=== PATIENT | female | born 1935 | race African-American/Black ===

== ENCOUNTER 2018-12-19 06:47 | Inpatient (IN) ==
[2018-12-19] MEDS ORDERED: NOREPINEPHRINE 4 MG/4 ML VIAL IV ONE (07:17)
[2018-12-19] MEDS ORDERED: ETOMIDATE 20 MG/10 ML VIAL IV ONE ×2 (07:20→07:22)
[2018-12-19] MEDS ORDERED: ROCURONIUM 100 MG/10 ML VIAL IV ONE ×2 (07:21→07:22)
[2018-12-19] MEDS ORDERED: SODIUM CHLORIDE 0.9% 1,000 ML IV STA ×3 (07:21→09:50)
[2018-12-19] MEDS ORDERED: MIDAZOLAM 2 MG/2 ML VIAL IV STA (07:22)
[2018-12-19] MEDS ORDERED: MIDAZOLAM 100 MG in SODIUM CHLORIDE 0.9% 80 ML IV PRN (07:22)
[2018-12-19] MEDS ORDERED: PIPERACILLIN/TAZOBACTAM 3,375 MG in SODIUM CHLORIDE 0.9% 100 ML IV STA (07:27)
[2018-12-19 07:40] LABS: PT Patient Result 10.6 SECS; Partial Thromboplastin Time 32.2 SECS (0-40)
[2018-12-19 07:43] LABS: Neutrophils % 82.6 % (38.7-73.9)
[2018-12-19 07:46] LABS: Apearance,Urine CLOUDY (Clear); Bacteria,Urine Many /HPF (Few); Bilirubin,Urine Negative (Negative); Blood, Urine Small mg/dL (Negative); Glucose,Urine (UA) Negative (Negative); Ketones,Urine Negative (Negative); Mucus,Urine Occasional /LPF (Occasional); Nitrite,Urine Negative (Negative); Protein,Urine 100 MG/DL; RBC,Urine 14 /HPF (0-4); Squamous Epithelial Cell,Urine Occasional /HPF (0-10); Urine Color Yellow (Yellow); Urine Specific Gravity 1.015 (1.001-1.035); Urine Urobilinogen < 2.0 EU/DL (0.2-1.0); WBC,Urine 1022 /HPF (0-6)
[2018-12-19 07:51] LABS: Alanine Aminotransferase 33 U/L (13-56); Albumin 2.3 G/DL (3.4-5.0); Alkaline Phosphatase 184 U/L (45-117); Aspartate Amino Transferase 23 U/L (0-37); Bilirubin,Total < 0.39 MG/DL (0.2-1.0); Blood Urea Nitrogen 110 MG/DL (7-18); Glucose 112 MG/DL (74-106); Osmolality,Calculated 334.9 MOS/KG (273-304); Total Protein 6.3 G/DL (6.4-8.3)
[2018-12-19 07:53] LABS: ABG Base Excess -14.9 MMOL/L (-2.5-2.5); ABG HCO3 13.2 MMOL/L (20-26); ABG Oxygen Saturation 99.7 % (95-100); ABG PCO2 34.7 MM HG (35-48); ABG TCO2 11.8 MMOL/L (23-27)
[2018-12-19 07:55] LABS: ABG PH 7.178 (7.35-7.45)
[2018-12-19] MEDS ORDERED: INSULIN REGULAR 100 UNIT/ML IV STA (07:57)
[2018-12-19] MEDS ORDERED: DEXTROSE 50% 25 GM/50 ML VIAL IV STA (07:57)
[2018-12-19] MEDS ORDERED: CALCIUM CHLORIDE 1,000 MG/10 ML SYRINGE IV STA (07:57)
[2018-12-19] MEDS ORDERED: SODIUM BICARBONATE 50 MEQ/50 ML VIAL IV STA (07:57)
[2018-12-19] MEDS ORDERED: SODIUM BICARBONATE 50 MEQ/50 ML SYRINGE IV ONE ×3 (08:03→13:24)
[2018-12-19] MEDS ORDERED: DEXTROSE 50% 25 GM/50 ML SYRINGE IV ONE ×2 (08:03→13:15)
[2018-12-19 08:05] LABS: Barbiturates Screen,Urine Negative (Negative); Benzodiazepines Screen,Urine Negative (Negative); Cannabinoid Screen,Urine Negative (Negative); Opiate Screen,Urine Positive (Negative); Phencyclidine Screen,Urine Negative (Negative)
[2018-12-19 08:09] LABS: Basophils % 0.4 % (0.0-0.8); Eosinophils # 0.1 10*3/uL (0.0-0.87); Eosinophils % 0.9 % (0.00-10.9); Hematocrit 41.3 VOL% (35.7-47.0); Immature Granulocytes % 0.7 %; Immature Granulocytes Absolute 0.04 #; Lymphocytes # 0.5 10*3/uL (1.4-4.0); Mean Corpuscular HGB Conc 28.8 GM/DL (32-36); Mean Platelet Volume 12.6 FL (9.6-12.0); Monocytes % 6.4 % (1.7-12.7); NRBC # 0.15 10*3/uL; Red Blood Count 4.49 MC/CUMM (3.8-5.5); Red Cell Distribution Width 20.4 % (9.3-17.3); White Blood Count 5.5 T/CUMM (4-12)
[2018-12-19 08:11] LABS: Hemoglobin 11.9 GM/DL (12.0-16.0); Platelet Count 68 T/CUMM (130-400)
[2018-12-19 08:16] LABS: Band Neutrophils 3 % (0-10); Hypochromasia 1+; Lymphocytes 10 % (20-55); Nucleated Red Blood Cells 3 (0-5); Ovalocytes Slight; Platelet Estimate Decreased; Segmented Neutrophils 78 % (50-85); Total Cells Counted 100
[2018-12-19] MEDS: NOREPINEPHRINE 8 MG in SODIUM CHLORIDE 0.9% 242 ML IV PRN (08:16)
[2018-12-19] MEDS ORDERED: SODIUM POLYSTYRENE SULFATE 15 GM/60 ML BOTTLE PER TUBE STA (08:53)
[2018-12-19 10:30] LABS: ABG Base Excess -14.4 MMOL/L (-2.5-2.5); ABG HCO3 13.5 MMOL/L (20-26); ABG Oxygen Saturation 99.7 % (95-100); ABG PCO2 31.1 MM HG (35-48); ABG PH 7.214 (7.35-7.45); ABG TCO2 11.5 MMOL/L (23-27)
[2018-12-19] MEDS ORDERED: LACTULOSE 20 GM/30 ML UDCUP PO PRN (10:37)
[2018-12-19] MEDS ORDERED: ALBUTEROL 2.5 MG/3 ML NEB RESP TX PRN (10:37)
[2018-12-19] MEDS ORDERED: ONDANSETRON 4 MG/2 ML VIAL IV PRN (10:37)
[2018-12-19] MEDS ORDERED: GLUCAGON 1 MG VIAL IM PRN (10:47)
[2018-12-19] MEDS ORDERED: DEXTROSE 50% 25 GM/50 ML SYRINGE IV PRN (10:47)
[2018-12-19] MEDS ORDERED: SODIUM CHLORIDE 0.9% 1,000 ML IV SCH (11:00)
[2018-12-19] MEDS ORDERED: DEXTROSE 5% NACL 0.45% 1,000 ML IV SCH (11:00)
[2018-12-19] MEDS: SODIUM BICARB INJ 100 MEQ in DEXTROSE 5% 1,000 ML IV SCH ×2 (11:45→21:35)
[2018-12-19 12:49] LABS: Calcium 8.4 MG/DL (8.5-10.1); Osmolality,Calculated 330.6 MOS/KG (273-304)
[2018-12-19] MEDS: PANTOPRAZOLE 40 MG VIAL IV SCH (12:50)
[2018-12-19] MEDS ORDERED: EPINEPHrine 1 MG/ML VIAL IV ONE (13:11)
[2018-12-19] MEDS ORDERED: CALCIUM CHLORIDE 1,000 MG/10 ML SYRINGE IV ONE ×2 (13:12→13:27)
[2018-12-19] MEDS ORDERED: SODIUM POLYSTYRENE SULFATE 15 GM/60 ML BOTTLE PO ONE (14:00)
[2018-12-19 14:08] LABS: Calcium 13.2 MG/DL (8.5-10.1); Osmolality,Calculated 341.3 MOS/KG (273-304)
[2018-12-19] MEDS: INSULIN LISPRO 100 UNIT/ML SUBCUT SCH ×3 (14:43→21:34)
[2018-12-19 15:24] LABS: ABG Base Excess -10.1 MMOL/L (-2.5-2.5); ABG HCO3 14.2 MMOL/L (20-26); ABG Oxygen Saturation 98.8 % (95-100); ABG PO2 216.2 MM HG (80-95); ABG TCO2 15.1 MMOL/L (23-27); Glucose Heart Surgery 123 MG/DL (74-106); Hemoglobin Heart Surgery 11.4 G/DL (12.0-16.0)
[2018-12-19 15:27] LABS: Potassium Heart/CVR 6.2 MMOL/L (3.5-5.1)
[2018-12-19] MEDS: SODIUM POLYSTYRENE SULFATE 15 GM/60 ML BOTTLE PO SCH ×2 (16:50→23:30)
[2018-12-19] MEDS: PIPERACILLIN/TAZOBACTAM 3,375 MG in SODIUM CHLORIDE 0.9% 100 ML IV SCH (16:50)
[2018-12-19] MEDS: LORazepam 2 MG/1 ML VIAL IV PRN (23:04)
[2018-12-20] MEDS: NOREPINEPHRINE 8 MG in SODIUM CHLORIDE 0.9% 242 ML IV PRN (00:30)
[2018-12-20] MEDS: INSULIN LISPRO 100 UNIT/ML SUBCUT SCH ×4 (00:32→12:00)
[2018-12-20] MEDS: PIPERACILLIN/TAZOBACTAM 3,375 MG in SODIUM CHLORIDE 0.9% 100 ML IV SCH (03:58)
[2018-12-20] MEDS: LORazepam 2 MG/1 ML VIAL IV PRN ×5 (03:58→22:23)
[2018-12-20 04:09] LABS: ABG Base Excess -4.3 MMOL/L (-2.5-2.5); ABG HCO3 20.8 MMOL/L (20-26); ABG Oxygen Saturation 99.2 % (95-100); ABG PCO2 30.4 MM HG (35-48); ABG TCO2 17.1 MMOL/L (23-27); Pt O2 Delivery Device Ventilator
[2018-12-20 05:25] LABS: Osmolality,Calculated 332.4 MOS/KG (273-304)
[2018-12-20 05:28] LABS: Basophils % 0.2 % (0.0-0.8); Eosinophils # 0.1 10*3/uL (0.0-0.87); Eosinophils % 0.7 % (0.00-10.9); Hemoglobin 11.3 GM/DL (12.0-16.0); Immature Granulocytes % 1.3 %; Immature Granulocytes Absolute 0.13 #; Lymphocytes % 10.2 % (21.3-54.2); Mean Corpuscular HGB Conc 30.5 GM/DL (32-36); Mean Corpuscular Volume 87.7 FL (87-102); Monocytes % 7.7 % (1.7-12.7); NRBC # 0.48 10*3/uL; Neutrophils % 79.9 % (38.7-73.9); Red Blood Count 4.22 MC/CUMM (3.8-5.5); Red Cell Distribution Width 19.3 % (9.3-17.3); White Blood Count 9.8 T/CUMM (4-12)
[2018-12-20 05:38] LABS: Platelet Count 49 T/CUMM (130-400)
[2018-12-20] MEDS: SODIUM BICARB INJ 100 MEQ in DEXTROSE 5% 1,000 ML IV SCH (05:55)
[2018-12-20] MEDS: SODIUM POLYSTYRENE SULFATE 15 GM/60 ML BOTTLE PO SCH (06:25)
[2018-12-20 06:40] LABS: Acanthocytes Few; Anisocytosis 1+; Band Neutrophils 21 % (0-10); Hypochromasia Slight; Lymphocytes 16 % (20-55); Macrocytosis 1+; Metamyelocytes 8 %; Myelocytes 2 %; Nucleated Red Blood Cells 20 (0-5); Platelet Estimate Decreased; Reactive Lymphocytes 2+; Segmented Neutrophils 49 % (50-85); Total Cells Counted 100
[2018-12-20] MEDS: PANTOPRAZOLE 40 MG VIAL IV SCH (11:41)
[2018-12-20] MEDS: MORPHINE 4 MG/1 ML VIAL IV PRN ×3 (12:52→22:16)
[2018-12-21] MEDS: MORPHINE 4 MG/1 ML VIAL IV PRN ×3 (05:46→13:58)
[2018-12-21] MEDS ORDERED: SODIUM POLYSTYRENE SULFATE 15 GM/60 ML BOTTLE PO SCH (09:00)
[2018-12-21 23:51] VITALS: BP 58/37
[2018-12-22] MEDS: MORPHINE 4 MG/1 ML VIAL IV PRN (09:02)
== END 2018-12-22 09:49 | disposition expired | DRG 871 ==
LOC: N.ED 06:47 → N.EDINP 10:37 → SUATTDRO 10:37 → N.CC 10:57 → N.4E 12-22 00:25
PROVIDERS: ADMIT Internal Medicine; ATTEND Internal Medicine